=== PATIENT | female | born 2000 | race Caucasian/White ===

== ENCOUNTER 2022-03-07 01:12 | Emergency (ER) | payer BC ==
[2022-03-07] MEDS ORDERED: Ondansetron PF 4 MG/2 ML Vial ONE (02:25)
[2022-03-07] MEDS ORDERED: Lorazepam 2 MG/ML VIAL ONE (02:25)
== END 2022-03-07 03:45 | disposition home or self-care (01) ==
LOC: ERS 01:12
DX: T50.991A Poisoning by other drugs, medicaments and biological substances, accidental (unintentional), initial encounter (principal)
CPT/HCPCS: 93005; 96361; 96374; 96375; J2060; J2405